=== PATIENT | female | born 1960 | race Caucasian/White ===

== ENCOUNTER 2024-10-15 12:24 | Outpatient (CLI) | payer OTHER | END 2024-10-15 12:25 | disposition home or self-care (01) | LOC: CSHCP 12:24 | PROVIDERS: ATTEND Internal Medicine | DX: J43.9 Emphysema, unspecified (principal); R91.1 Solitary pulmonary nodule | CPT/HCPCS: 71250; 94060; 94664; 94726; 94729; 94760 ==